=== PATIENT | female | born 1990 | race Caucasian/White ===

== ENCOUNTER 2016-04-25 18:22 | Emergency (ER) | payer BC ==
[2016-04-25] MEDS ORDERED: Ondansetron 4 MG Tab.DIS PO ONE (19:18)
[2016-04-25] MEDS ORDERED: Meclizine 25 MG Tab PO ONE (19:19)
[2016-04-25] MEDS ORDERED: diphenhydrAMINE 50 MG/ML SDV IM ONE (19:19)
--- NOTE | 2016-04-25 19:23 | EDM.PDOC ---
ED HPI GENERAL MEDICAL PROBLEM - General Chief Complaint: Headache Stated Complaint: PT HURT NECK Time Seen by Provider: 04/25/16 19:10 - History of Present Illness INITIAL COMMENTS - FREE TEXT/NARRATIVE: HISTORY AND PHYSICAL: History of present illness: The patient is a 25-year-old female with a history of PCOS who presents with acute onset of feeling like there is a buzzing sensation in her head that started in the middle of her head and then expanded outward and there were some discomfort with it. The patient states this happened somewhat suddenly and has improved but then she felt like there was fluid in her head. Patient did not pass out or blackout but did feel somewhat off-balance. She had some nausea but no vomiting and no focal neurologic changes in her upper extremities. She had some head and neck discomfort afterwards but it is not severe more like tension- like sensation and she has had no sore throat fever chills chest pain shortness of breath or abdominal issues. She had no recent trauma to her head or neck and currently is significantly improved but still feels somewhat "off" Review of systems: As per history of present illness and below otherwise all systems reviewed and negative. Past medical history: As per history of present illness and as reviewed below otherwise noncontributory. Surgical history: As per history of present illness and as reviewed below otherwise noncontributory. Social history: No reported history of drug or alcohol abuse. Family history: As per history of present illness and as reviewed below otherwise noncontributory. Physical exam: General: Well-developed overweight female who is nontoxic and benefits of been reviewed by me. HEENT: Atraumatic, normocephalic, pupils reactive, negative for conjunctival pallor or scleral icterus, mucous membranes moist, throat clear, neck supple, nontender, trachea midline. There are no midline step-offs tenderness defects of the cervical spine no cervical adenopathy and no nuchal rigidity. There is no scalp tenderness on palpation. There is no mastoid tenderness. TMs are dulled bilaterally. There is no gross nystagmus appreciated. On Dale-Hallpike maneuver the patient is symptomatic when going to the right as she was with a nystagmus exam but there is no nystagmus Lungs: Clear to auscultation, breath sounds equal bilaterally, chest nontender. Heart: S1S2, regular, negative for clicks, rubs, or JVD. Abdomen: Soft, nondistended, nontender. Negative for masses or hepatosplenomegaly. Negative for costovertebral tenderness. Pelvis: Stable nontender. Genitourinary: Deferred. Rectal: Deferred. Extremities: Atraumatic, negative for cords or calf pain. Neurovascular unremarkable. Neuro: Awake, alert, oriented. Cranial nerves II through XII unremarkable. Cerebellum unremarkable. Motor and sensory unremarkable throughout. Exam nonfocal. Diagnostics: CT scan of the head Therapeutics: Benadryl antivert Zofran Patient is aware of CT scan findings with sphenoid sinus fluid is aware this may have triggered her vertiginous symptomatology and discomfort. I will prescribe Antivert for home but I will also treat the sinusitis with recommended Claritin or Benadryl [id number] as well as antibiotics. I will give her referrals for followup Impression: Sphenoid sinusitis, mild positional vertigo Definitive disposition and diagnosis as appropriate pending reevaluation and review of above. Head Pain Score (Numeric/FACES): 0 - Related Data Allergies Allergy/AdvReac Type Severity Reaction Status Date / Time No Known Allergies Allergy Verified 04/25/16 18:24 Home Meds: Home Meds . 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 ED EXAM, GENERAL - Physical Exam Exam: See Below (See dictation) Course - Vital Signs Last Recorded V/S: Last Vital Signs Temp 36.3 C 04/25/16 18:24 Pulse 89 04/25/16 20:07 Resp 16 04/25/16 20:07 BP 115/81 04/25/16 20:07 Pulse Ox 100 04/25/16 20:07 - Orders/Labs/Meds Orders: Active Orders 24 hr Category Date Time Status Head wo Cont [CT] Stat Exams 04/25/16 19:18 Taken Meds: Medications Discontinued Medications Generic Name Dose Route Start Last Admin Trade Name Ana PRN Reason Stop Dose Admin Diphenhydramine HCl 50 mg 04/25/16 19:19 04/25/16 19:29 Benadryl IM 04/25/16 19:20 50 mg ONETIME ONE Administration Meclizine HCl 25 mg 04/25/16 19:19 04/25/16 19:29 Antivert PO 04/25/16 19:20 25 mg ONETIME ONE Administration Ondansetron HCl 4 mg 04/25/16 19:18 04/25/16 19:29 Zofran Odt PO 04/25/16 19:19 4 mg ONETIME ONE Administration Departure - Departure Time of Disposition: 20:19 Disposition: Home, Self-Care 01 Condition: good Clinical Impression: Vertigo Sphenoid sinusitis Qualifiers: Chronicity: acute Recurrence: not specified as recurrent Qualified Code(s): J01.30 - Acute sphenoidal sinusitis, unspecified Forms: ED Department Discharge Additional Instructions: The following information is given to patients seen in the emergency department who are being discharged to home. This information is to outline your options for follow-up care. We provide all patients seen in our emergency department with a follow-up referral. The need for follow-up, as well as the timing and circumstances, are variable depending upon the specifics of your emergency department visit. If you don't have a primary care physician on staff, we will provide you with a referral. We always advise you to contact your personal physician following an emergency department visit to inform them of the circumstance of the visit and for follow-up with them and/or the need for any referrals to a consulting specialist. The emergency department will also refer you to a specialist when appropriate. This referral assures that you have the opportunity for followup care with a specialist. All of these measure are taken in an effort to provide you with optimal care, which includes your followup. Under all circumstances we always encourage you to contact your private physician who remains a resource for coordinating your care. When calling for followup care, please make the office aware that this follow-up is from your recent emergency room visit. If for any reason you are refused follow-up, please contact the [facility] emergency department at and ask to speak to the emergency department charge nurse. [facility] Primary care- Internal Medicine and Family [place] [id number] [place] [phone] Please do all position changing slowly so as to avoid dizziness or lightheadedness. Take [id number] Claritin or Benadryl to help with the fluid in her sinuses and take antibiotics until finished. Use Antivert as needed and push hydration. Please call and followup with primary care for reevaluation and return here as needed and as discussed - My Orders Last 24 Hours: My Active Orders 04/25/16 19:18 Head wo Cont [CT] Stat - Assessment/Plan Last 24 Hours: My Active Orders 04/25/16 19:18 Head wo Cont [CT] Stat
[2016-04-25 21:14] VITALS: BP 111/70
--- NOTE | 2016-04-28 13:17 | CT ---
EXAM DATE: 04/25/16 PATIENT'S AGE: 25 Patient: DANIELE DIAMOND Facility: [place], [place] Site . Site : 1990 Study: CT Head [id number] 7:55:33 PM Ordering Physician: Lorenzo Lowe Final Report: HISTORY: Pain and numbness Technique: Noncontrast axial images were obtained from the skullbase to the vertex in reviewed in brain, blood in bone windows. Findings: Helm-white matter differentiation is preserved. No evidence for acute intracranial hemorrhage or infarction. No midline shift or mass effect. The ventricles are nondilated and symmetric. There is fluid within the sphenoid sinuses. Impression: No acute intracranial pathology. Fluid within the sphenoid sinuses. Dictated by Daniele Cedillo MD @ Apr 25 2016 8:06PM (Electronic Signature) Report Signed by Proxy and Original Signed Document filed in the Medical Record. MTDD
== END 2016-04-25 20:27 | disposition home or self-care (01) ==
LOC: MW.ED 18:22
DX: J01.30 Acute sphenoidal sinusitis, unspecified (principal); M54.2 Cervicalgia; R11.0 Nausea; R51 Headache; R55 Syncope and collapse
CPT/HCPCS: 70450; 96372; 99283; A9270; J1200; 99284

== ENCOUNTER → 2016-04-29 | Outpatient (CLI) | payer BC ==
[2016-04-29 10:46] LABS: CHLORIDE,CL 105 mmol/L (98-110); SODIUM,NA 140 mmol/L (136-146)
== END ==
LOC: MW.CHOBGYN 10:02
PROVIDERS: ATTEND Nurse Practitioner Women's Health
DX: N92.0 Excessive and frequent menstruation with regular cycle (principal); L83 Acanthosis nigricans; E28.2 Polycystic ovarian syndrome
CPT/HCPCS: 36415; 80053; 80061; 83036; 84443; 84703; 85025

== ENCOUNTER → 2016-06-03 | Outpatient (CLI) | payer BC | LOC: MW.CHOBGYN 09:07 | PROVIDERS: ATTEND Nurse Practitioner Women's Health | DX: E28.2 Polycystic ovarian syndrome (principal) | CPT/HCPCS: 36415; 82533; 82627 ==

== ENCOUNTER 2017-08-02 09:16 | Emergency (ER) | payer BC ==
[2017-08-02 09:30] VITALS: BP 138/80
[2017-08-02] MEDS ORDERED: Ketorolac 60 MG/2 ML SDV IM ONE (11:01)
--- NOTE | 2017-08-02 11:08 | EDM.PDOC ---
ED HPI GENERAL MEDICAL PROBLEM - General Chief Complaint: Flank Pain Stated Complaint: LT SIDE AND LOWER BACK HURTS Time Seen by Provider: 08/02/17 09:29 Source of Information: Reports: Patient History Limitations: Reports: No Limitations - History of Present Illness INITIAL COMMENTS - FREE TEXT/NARRATIVE: History of present illness: []Patient complains of left flank pain that is worse with movement and lifting her left arm. Patient's been trying to get and feels that she may be at this time. Patient did not do a home test today, last one was 2 weeks ago which was negative. She denies any nausea, vomiting, diarrhea, fevers, chills, blood in her urine or vaginal discharge. She denies any excessive physical activity or trauma to the area Review of systems: As per history of present illness and below otherwise all systems reviewed and negative. Past medical history: As per history of present illness and as reviewed below otherwise noncontributory. Surgical history: As per history of present illness and as reviewed below otherwise noncontributory. Social history: No reported history of drug or alcohol abuse. Family history: As per history of present illness and as reviewed below otherwise noncontributory. Physical exam: General: Well developed, well nourished in NAD HEENT: Atraumatic, normocephalic, pupils reactive, negative for conjunctival pallor or scleral icterus, mucous membranes moist, throat clear, neck supple, nontender, trachea midline. Lungs: Clear to auscultation, breath sounds equal bilaterally, chest nontender. Heart: S1S2, regular, negative for clicks, rubs, or JVD. Abdomen: Soft, nondistended, nontender. Negative for masses or hepatosplenomegaly. Positive for costovertebral tenderness. Patient has tenderness in the left lumbar musculoskeletal area. Pelvis: Stable nontender. Genitourinary: Deferred. Rectal: Deferred. Extremities: Atraumatic, negative for cords or calf pain. Neurovascular unremarkable. Neuro: Awake, alert, oriented. Cranial nerves II through XII unremarkable. Cerebellum unremarkable. Motor and sensory unremarkable throughout. Exam nonfocal. Diagnostics: []UA negative test negative Therapeutics: []Toradol Impression: []Low back pain Plan: []Flexeril for pain follow-up primary care as needed Definitive disposition and diagnosis as appropriate pending reevaluation and review of above. left flank Pain Score (Numeric/FACES): 6 - Related Data Allergies Allergy/AdvReac Type Severity Reaction Status Date / Time No Known Allergies Allergy Verified 08/02/17 09:27 Home Meds: Home Meds Cyclobenzaprine [Flexeril] 10 mg PO BID PRN #12 tab 08/02/17 [Rx] Meloxicam 1 tab PO DAILY 08/02/17 [History] Past Medical History HEENT History: Reports: None Cardiovascular History: Reports: None Respiratory History: Reports: None Gastrointestinal History: Reports: None Genitourinary History: Reports: None [employer] History: Reports: Polycystic Ovaries Musculoskeletal History: Reports: None Neurological History: Reports: None Psychiatric History: Reports: None Endocrine/Metabolic History: Reports: Obesity/BMI 30+ Hematologic History: Reports: None Immunologic History: Reports: None Oncologic (Cancer) History: Reports: None Dermatologic History: Reports: None - Infectious Disease History Infectious Disease History: Reports: Chicken Pox - Past Surgical History Head Surgeries/Procedures: Reports: None HEENT Surgical History: Reports: None Cardiovascular Surgical History: Reports: None Respiratory Surgical History: Reports: None GI Surgical History: Reports: None Female Surgical History: Reports: None Endocrine Surgical History: Reports: None Neurological Surgical History: Reports: None Musculoskeletal Surgical History: Reports: None Oncologic Surgical History: Reports: None Dermatological Surgical History: Reports: None Social & Family History - Family History Family Medical History: Noncontributory - Tobacco Use Smoking Status *Q: Never Smoker Second Hand Smoke Exposure: No - Caffeine Use Caffeine Use: Reports: None - Recreational Drug Use Recreational Drug Use: No ED ROS GENERAL - Review of Systems Review Of Systems: See Below (See history of present illness) ED EXAM, GI/ABD - Physical Exam Exam: See Below (See history of present illness) Course - Vital Signs Last Recorded V/S: Last Vital Signs Temp 97.3 F 08/02/17 09:28 Pulse 96 08/02/17 09:28 Resp 18 08/02/17 09:28 BP 138/80 08/02/17 09:28 Pulse Ox 97 08/02/17 09:28 - Orders/Labs/Meds Orders: Active Orders 24 hr Category Date Time Status HCG QUALITATIVE,URINE [URCHEM] Stat Lab 08/02/17 10:15 Ordered UA W/MICROSCOPIC [URIN] Stat Lab 08/02/17 10:15 Ordered Labs: Laboratory Tests 08/02/17 08/02/17 Range/Units 10:15 10:15 Urine Color YELLOW Urine Appearance CLEAR Urine pH 7.0 (5.0-8.0) Ur Specific [place] 1.020 (1.001-1.035) Urine Protein NEGATIVE (NEGATIVE) mg/dL Urine Glucose (UA) NEGATIVE (NEGATIVE) mg/dL Urine Ketones NEGATIVE (NEGATIVE) mg/dL Urine Occult Blood NEGATIVE (NEGATIVE) Urine Nitrite NEGATIVE (NEGATIVE) Urine Bilirubin NEGATIVE (NEGATIVE) Urine Urobilinogen 0.2 (<2.0) EU/dL Ur Leukocyte Esterase NEGATIVE (NEGATIVE) Urine RBC 0-2 (0-2/HPF) Urine WBC 2-4 (0-5/HPF) Ur Epithelial Cells MODERATE (NONE-FEW) Urine Bacteria FEW (NEGATIVE) Urine HCG, Qual NEGATIVE (NEGATIVE) Meds: Medications Discontinued Medications Generic Name Dose Route Start Last Admin Trade Name Freq PRN Reason Stop Dose Admin Ketorolac Tromethamine 60 mg 08/02/17 11:01 08/02/17 11:12 Toradol IM 08/02/17 11:02 60 mg ONETIME ONE Administration Departure - Departure Time of Disposition: 11:40 Disposition: Home, Self-Care 01 Condition: Good Clinical Impression: Low back pain Qualifiers: Chronicity: unspecified Back pain laterality: left Sciatica presence: without sciatica Qualified Code(s): M54.5 - Low back pain - Discharge Information Prescriptions: Cyclobenzaprine [Flexeril] 10 mg PO BID PRN #12 tab PRN Reason: Pain Referrals: PCP,None [Primary Care Provider] - Forms: ED Department Discharge Additional Instructions: The following information is given to patients seen in the emergency department who are being discharged to home. This information is to outline your options for follow-up care. We provide all patients seen in our emergency department with a follow-up referral. The need for follow-up, as well as the timing and circumstances, are variable depending upon the specifics of your emergency department visit. If you don't have a primary care physician on staff, we will provide you with a referral. We always advise you to contact your personal physician following an emergency department visit to inform them of the circumstance of the visit and for follow-up with them and/or the need for any referrals to a consulting specialist. The emergency department will also refer you to a specialist when appropriate. This referral assures that you have the opportunity for follow-up care with a specialist. All of these measure are taken in an effort to provide you with optimal care, which includes your follow-up. Under all circumstances we always encourage you to contact your private physician who remains a resource for coordinating your care. When calling for follow-up care, please make the office aware that this follow-up is from your recent emergency room visit. If for any reason you are refused follow-up, please contact the [facility] Emergency Department at and asked to speak to the emergency department charge nurse. Flexeril for muscle spasms take ibuprofen for pain use ice or heat for comfort follow-up with primary care as needed. [facility] [address] [place] [phone] - My Orders Last 24 Hours: My Active Orders 08/02/17 10:15 HCG QUALITATIVE,URINE [URCHEM] Stat UA W/MICROSCOPIC [URIN] Stat - Assessment/Plan Last 24 Hours: My Active Orders 08/02/17 10:15 HCG QUALITATIVE,URINE [URCHEM] Stat UA W/MICROSCOPIC [URIN] Stat
== END 2017-08-02 11:47 | disposition home or self-care (01) ==
LOC: MW.ED 09:16
DX: M54.5 Low back pain (principal); Z79.899 Other long term (current) drug therapy
CPT/HCPCS: 81001; 81025; 96372; 99284; J1885